=== PATIENT | male | born 1955 | race Caucasian/White ===

== ENCOUNTER → 2020-01-15 11:08 | Outpatient (BNVA) | payer MEDICARE, SELFPAY | PROVIDERS: Family Provider Family Medicine; PCP Family Medicine; Visit Provider Family Medicine | DX: I10 Essential (primary) hypertension (principal); I63.113 Cerebral infarction due to embolism of bilateral vertebral arteries; M25.511 Pain in right shoulder; Z12.5 Encounter for screening for malignant neoplasm of prostate; R53.83 Other fatigue; Z79.899 Other long term (current) drug therapy | CPT/HCPCS: 80053; 80061; 82607; 82652; 84153 ==

== ENCOUNTER → 2020-07-30 13:45 | Outpatient (BNVA) | payer MEDICARE, OTHER, SELFPAY | PROVIDERS: Family Provider Family Medicine; PCP Family Medicine; Visit Provider Family Medicine | DX: R68.89 Other general symptoms and signs (principal); J18.9 Pneumonia, unspecified organism | CPT/HCPCS: 87400; 87635 ==

== ENCOUNTER → 2020-11-05 14:02 | Outpatient (BNVA) | payer MEDICARE, OTHER, SELFPAY | PROVIDERS: Family Provider Family Medicine; PCP Family Medicine; Visit Provider Family Medicine | DX: I10 Essential (primary) hypertension (principal); I63.113 Cerebral infarction due to embolism of bilateral vertebral arteries | CPT/HCPCS: 80053; 80061 ==

== ENCOUNTER → 2021-05-05 08:37 | Outpatient (BNVA) | payer MEDICARE, OTHER, SELFPAY | PROVIDERS: Family Provider Family Medicine; PCP Family Medicine; Visit Provider Family Medicine | DX: I10 Essential (primary) hypertension (principal); F32.9 Major depressive disorder, single episode, unspecified; G89.29 Other chronic pain; M62.838 Other muscle spasm; F32.1 Major depressive disorder, single episode, moderate | CPT/HCPCS: 80048 ==